=== PATIENT | female | born 1955 | race Caucasian/White ===

== ENCOUNTER 2018-03-25 07:32 | Day surgery (SDC) | payer BC ==
[~2018-03-25] VITALS: Ht 152.4 cm; Wt 45.4 kg
[~2018-03-25 07:32] MED LIST: BOSWELLIA PO; EVENING PRIMR1000 MG PO; FISH OIL 1,0001 EA10 PO; GINKGO BILOBA120 M1 PO; MAGNESIUM250 MG PO; METHYL GUARD PO; NATURE-THROID32.5 MG PO; PROBIOTIC1 EAC7 PO; SELENIUM200 MC3 PO; TART CHERRY E1000 MG PO; VITAMIN C500 M6 PO; VITAMIN D33000 UNIT PO; [UNRECOGNIZED DRUG - OTHER] PO; [UNRECOGNIZED DRUG - OTHER] PO; [UNRECOGNIZED DRUG - OTHER] PO
[2018-03-25 08:24] VITALS: BP 132/63
[2018-03-25] MEDS ORDERED: OXYCODONE HCL5 MG PO (10:45)
[2018-03-25 13:45] VITALS: BP 116/57
[2018-03-25 14:35] VITALS: BP 117/68
== END 2018-03-25 14:45 | disposition home or self-care (01) ==
LOC: SDC 07:32
PROC: 0YU60JZ Supplement Left Inguinal Region with Synthetic Substitute, Open Approach (ICD-10-PCS; principal; 2018-03-25)
DX: K40.90 Unilateral inguinal hernia, without obstruction or gangrene, not specified as recurrent (principal); E06.3 Autoimmune thyroiditis; E03.9 Hypothyroidism, unspecified
CPT/HCPCS: 88302; C1781; J1100; J1200; J2250; J2405; J2710; J2765; J3010; J7643; S0020; S0074